=== PATIENT | male | born 1955 | race Caucasian/White ===

== ENCOUNTER 2016-06-07 11:59 | Observation (INO) | payer OTHER ==
[~2016-06-07] VITALS: Ht 182.9 cm; Wt 98.7 kg
[~2016-06-07 11:59] MED LIST: ADVIL200 MG PO; HYDROCODON-ACE1 EAC7 PO; LOVENOX40 MG/0.4 SC; SENNA PLUS TAB1 EACH PO
[2016-06-07 12:30] LABS: HEMATOCRIT 38.1 % (38.0-50.0); MCH 30.2 PG (29.0-34.0); MCHC 33.3 G/DL (30.0-36.0); MCV 90.7 FL (86-99); MEAN PLAT.VOLUME 8.5 uM^3 (9.0-12.4); PLATELET COUNT 249 K/uL (156-360); RBC DIS.WIDTH-CV 13.2 % (11.8-14.6); WHITE BLOOD COUNT 8.8 K/uL (4.1-10.2)
[2016-06-07 12:43] LABS: CHLORIDE 104 mEq/L (99-109); POTASSIUM 4.5 mEq/L (3.7-5.4); SODIUM 137 mEq/L (136-147)
[2016-06-07 12:45] LABS: GLUCOSE 107 mg/dL (70-99)
[2016-06-07 12:46] LABS: ANION GAP 9 MEQ/L (2-14)
[2016-06-07 12:49] LABS: GFR ESTIMATE (CALCULATED) > 59 mL/min/
[2016-06-07 12:50] LABS: UREA NITROGEN (BUN) 14 mg/dL (9-23)
[2016-06-07 14:55] LABS: TROP-I INTERPRETATION NEGATIVE; TROPONIN-I < 0.01 ng/mL (0.0-0.30)
[2016-06-07] MEDS ORDERED: ALEVE220 MG PO (15:48)
[2016-06-07] MEDS ORDERED: FERROUS SULFAT325 MG PO (15:49)
[2016-06-07 16:08] LABS: INTER. NORMALIZED RATIO 1.1; PROTHROMBIN TIME 11.4 (9.2-11.2); PTT 29.8 (25-32)
[2016-06-07 18:00] VITALS: BP 126/71
[2016-06-07 20:06] VITALS: BP 125/64
[2016-06-08 00:01] VITALS: BP 131/68
[2016-06-08 03:10] VITALS: BP 101/56
[2016-06-08 07:51] VITALS: BP 116/70
[2016-06-08 08:35] LABS: HEMATOCRIT 35.5 % (38.0-50.0); MCH 30.2 PG (29.0-34.0); MCHC 33.2 G/DL (30.0-36.0); MCV 90.8 FL (86-99); MEAN PLAT.VOLUME 8.9 uM^3 (9.0-12.4); PLATELET COUNT 219 K/uL (156-360); RBC DIS.WIDTH-CV 13.6 % (11.8-14.6); RBC DIS.WIDTH-SD 45.3 % (39-53); RED BLOOD COUNT 3.91 M/uL (4.00-5.50)
[2016-06-08 09:05] LABS: ANION GAP 9 MEQ/L (2-14); CHLORIDE 101 MEQ/L (99-109); POTASSIUM 4.7 MEQ/L (3.7-5.4); SAMPLE HEMOLYSIS CHECK 0; SAMPLE ICTERIC CHECK 0; SAMPLE LIPEMIA CHECK 0; SODIUM 135 MEQ/L (136-147)
[2016-06-08 09:10] LABS: GFR ESTIMATE (CALCULATED) > 59 mL/min/; UREA NITROGEN (BUN) 14 mg/dL (9-23)
[2016-06-08 09:12] LABS: GLUCOSE 169 mg/dL (70-99)
[2016-06-08 11:44] VITALS: BP 139/88
[2016-06-08] MEDS ORDERED: ELIQUIS5 MG PO (12:13)
[2016-06-08] MEDS ORDERED: LEVOFLOXACIN500 MG PO (12:13)
== END 2016-06-08 15:18 | disposition home or self-care (01) ==
LOC: EME 11:59 → EDOF 15:40 → 3EAST 15:40
PROVIDERS: Hospitalist; Nurse Practitioner Family
DX: I26.99 Other pulmonary embolism without acute cor pulmonale (principal); J18.9 Pneumonia, unspecified organism; Z96.641 Presence of right artificial hip joint; J45.909 Unspecified asthma, uncomplicated; Z79.01 Long term (current) use of anticoagulants
CPT/HCPCS: 71020; 71275; 80048; 81240 90; 83090 90; 84484; 85027; 85240 90; 85300 90; 85303 90; 85305 90; 85306 90; 85610; 85613 90; 85730; 85730 90; 86146 90; 86147 90; 93005; 99281; 99285; G0378; J1170; J7030